=== PATIENT | male | born 1995 | race Asian ===

== ENCOUNTER 2020-09-27 13:45 | Emergency (ER) | payer BC, OTHER ==
[~2020-09-27] VITALS: Ht 182.9 cm; Wt 113.4 kg
[2020-09-27 13:52] VITALS: BP_SYST 159
--- NOTE | 2020-09-27 14:00 | NUR ---
Patient to ER bed 8 to gown for evaluation. Side rails up.
--- NOTE | 2020-09-27 14:10 | NUR ---
pt arrives w/ vague symptoms. States that he was in the back of an [employer] when all of a sudden he felt very weak. Pt is here on vacation and states that he has been out under the sun and has been drinking alcohol
--- NOTE | 2020-09-27 14:15 | NUR ---
ER at bedside examining patient.
[2020-09-27 14:54] LABS: BILIRUBIN,URINE NEGATIVE (NEGATIVE); BLOOD, URINE NEGATIVE (NEGATIVE); COLOR,URINE YELLOW (YELLOW); GLUCOSE,URINE NEGATIVE (NEGATIVE); KETONES,URINE NEGATIVE (NEGATIVE); LEUKOCYTE ESTERASE ,URINE NEGATIVE (NEGATIVE); NITRITE, URINE NEGATIVE (NEGATIVE); PH,URINE 7.5 (5.0-8.0); PROTEIN URINE NEGATIVE (NEGATIVE); UROBILINOGEN,URINE 0.2 (0.2-1.0)
[2020-09-27 14:57] LABS: CLARITY/URINE CLEAR (CLEAR)
[2020-09-27 15:02] LABS: BASOPHILS # (AUTO) 0.1 K/uL (0.0-0.2); BASOPHILS % (AUTO) 0.9 % (0.0-2.0); EOSINOPHILS % (AUTO) 0.2 % (0.0-4.0); HEMATOCRIT 43.4 % (36-54); HEMOGLOBIN 14.7 g/dL (14.0-18.0); LYMPHOCYTES # (AUTO) 1.5 K/uL (1.0-5.5); MEAN CORPUSCULAR HEMOGLOBIN 30 pg (27-31); MEAN CORPUSCULAR HGB CONC 34 % (32-36); MEAN CORPUSCULAR VOLUME 87 fL (79.0-98.0); MONOCYTES # (AUTO) 0.5 K/uL (0.0-1.0); MONOCYTES % (AUTO) 9.8 % (1.7-9.3); NEUTROPHILS # (AUTO) 3.4 K/uL (1.8-7.7); NEUTROPHILS % (AUTO) 62.1 % (40.0-70.0); PLATELET COUNT (AUTO) 256 K/uL (130-430); RED BLOOD CELL COUNT(AUTO) 4.98 MIL/uL (4.2-6.2); RED CELL DISTRIBUTION WIDTH 12.7 % (9.0-15.0); WHITE BLOOD COUNT (AUTO) 5.5 K/uL (4.8-10.8)
[2020-09-27 16:01] LABS: ANION GAP 10 (5-15); CALCIUM 9.5 mg/dL (8.4-11.0); CHLORIDE 101 mmol/L (98-107); CREATININE 1.48 mg/dL (0.55-1.30); GLUCOSE 88 mg/dL (70-99); POTASSIUM 3.5 mmol/L (3.5-5.1); SODIUM SERUM 140 mmol/L (136-145); UREA NITROGEN, BLOOD 13 mg/dL (8-21)
[2020-09-27 16:06] LABS: GFR AFRICAN AMERICAN 75 mL/min (>90)
[2020-09-27 16:07] LABS: PROTHROMBIN TIME 10.7 SECS (9.5-12.5)
[2020-09-27 16:09] LABS: ALANINE AMINOTRANSFERASE 41 U/L (12-78); ALBUMIN 4.2 g/dL (3.4-4.8); ASPARTATE AMINOTRANSFERASE 35 U/L (10-37); TOTAL BILIRUBIN 0.6 mg/dL (0.0-1.0)
[2020-09-27] MEDS ORDERED: NACL 0.9% 1,000 ML IV ONE (16:30)
[2020-09-27 16:46] LABS: ACETONE, SERUM NEGATIVE (NEGATIVE)
[2020-09-27 17:21] VITALS: BP_SYST 144
[2020-09-27 17:25] LABS: CKMB RELATIVE INDEX 0.4 (0.0-2.9); CREATINE KINASE MB 2.2 ng/mL (0-3.6)
== END 2020-09-27 17:22 | disposition home or self-care (01) ==
LOC: SED 13:45
DX: T67.5XXA Heat exhaustion, unspecified, initial encounter (principal); E86.0 Dehydration; M62.82 Rhabdomyolysis; X30.XXXA Exposure to excessive natural heat, initial encounter; Y93.89 Activity, other specified; Y92.89 Other specified places as the place of occurrence of the external cause; Y99.8 Other external cause status
CPT/HCPCS: 36415; 71045; 80053; 81003; 82009; 82550; 82553; 83605; 84484; 85025; 85610; 85730; 93005; 96360; 99285; J7030